=== PATIENT | male | born 1995 | race Caucasian/White ===

== ENCOUNTER 2021-05-15 01:34 | Emergency (ER) | payer OTHER ==
[~2021-05-15] VITALS: Ht 165.1 cm; Wt 90.7 kg
[~2021-05-15 01:34] MED LIST: TRAZ-307 PO
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
[2021-05-15] MEDS ORDERED: ONDANSETRON 4 MG/2 ML VIAL IM ONE (01:50)
[2021-05-15] MEDS ORDERED: ONDANSETRON 4 MG/2 ML VIAL IVP ONE (01:55)
[2021-05-15] MEDS ORDERED: NACL 0.9% 1,000 ML IV ONE (01:55)
--- NOTE | 2021-05-15 01:55 | NUR ---
PT TO LOBBY.
[2021-05-15 02:07] VITALS: BP 123/88
[2021-05-15] MEDS ORDERED: ONDA-188 SL (02:19)
[2021-05-15 03:29] VITALS: BP 154/81
--- NOTE | 2021-05-15 03:31 | NUR ---
Patient discharged with v/s stable. Written and verbal after care instructions given and explained. Patient alert, oriented and verbalized understanding of instructions. Wheel Chair Assisted with to LOBBY. All questions addressed prior to discharge. ID band removed. Patient advised to follow up with PMD. Rx of ZOFRAN given. Patient educated on indication of medication including possible reaction and side effects. Opportunity to ask questions provided and answered.
--- NOTE | 2021-05-15 03:31 | NUR ---
PT DC TO WAIT IN LOBBY FOR FAMILY MEMBER TO [employer] PT.
== END 2021-05-15 03:20 | disposition home or self-care (01) ==
LOC: MED 01:34
DX: F12.929 Cannabis use, unspecified with intoxication, unspecified (principal); R11.2 Nausea with vomiting, unspecified; F41.9 Anxiety disorder, unspecified; Z79.899 Other long term (current) drug therapy
CPT/HCPCS: 96361; 96374; 99283; J2405; J7030